=== PATIENT | male | born 1965 | race Two or more races ===

== ENCOUNTER 2017-10-22 10:35 | Emergency (ER) | payer OTHER ==
[~2017-10-22] VITALS: Ht 157.5 cm; Wt 98.9 kg
[2017-10-22 10:59] VITALS: BP 142/82
[2017-10-22] MEDS ORDERED: Morphine Sulfate 4mg/ml Inj IVP ONE (11:15)
[2017-10-22 11:48] LABS: ANION GAP 8 mmol/L (5-15); CALCIUM 8.7 MG/DL (8.5-10.1); CARBON DIOXIDE 28 MMOL/L (21-32); CHLORIDE 103 MMOL/L (98-107); CREATININE 0.8 MG/DL (0.55-1.30); GLOMERULAR FILTRATION RATE > 60 mL/min (>60); POTASSIUM 4.3 MMOL/L (3.5-5.1); SODIUM 139 MMOL/L (136-145)
[2017-10-22 11:53] LABS: ALANINE AMINOTRANSFERASE 100 U/L (12-78); ALBUMIN/GLOBULIN RATIO 0.9 (1.0-2.7); APPEARANCE,URINE CLEAR; ASPARTATE AMINO TRANSFERASE 75 U/L (15-37); KETONES,URINE NEGATIVE (NEGATIVE); LEUKOCYTE ESTERASE ,URINE 1+ (NEGATIVE); LIPASE 201 U/L (73-393); NITRITE,URINE NEGATIVE (NEGATIVE); PH,URINE 6.5 (4.5-8.0); PROTEIN,URINE 1+ (NEGATIVE); TOTAL PROTEIN 7.6 G/DL (6.4-8.2); UROBILINOGEN,URINE 1 MG/DL (0.0-1.0)
[2017-10-22 11:55] LABS: BASOPHILS % (AUTO) 1.5 % (0.0-2.0); EOSINOPHILS % (AUTO) 2.2 % (0.0-3.0); LYMPHOCYTES % (AUTO) 40.9 % (20.0-45.0); MEAN CORPUSCULAR HEMOGLOBIN 31.1 PG (27.0-31.0); MEAN CORPUSCULAR HGB CONC 34.5 G/DL (32.0-36.0); MEAN CORPUSCULAR VOLUME 90 FL (80-99); MEAN PLATELET VOLUME 6.7 FL (6.5-10.1); MONOCYTES % (AUTO) 9.6 % (1.0-10.0); PLATELET COUNT 177 K/UL (150-450); RED BLOOD COUNT 5.13 M/UL (4.70-6.10); RED CELL DISTRIBUTION WIDTH 11.6 % (11.6-14.8); WHITE BLOOD COUNT 5.3 K/UL (4.8-10.8)
[2017-10-22 12:05] LABS: BACTERIA,URINE OCCASIONAL /HPF; RBC,URINE 0-2 /HPF (0 - 0); SQUAMOUS EPITHELIAL CELL,UR OCCASIONAL /LPF (NONE/OCC); WBC,URINE 0-2 /HPF (0 - 0)
[2017-10-22] MEDS ORDERED: PEPCID40 MG PO (13:16)
[2017-10-22 13:44] VITALS: BP 118/72
--- NOTE | 2017-10-23 07:09 | Emergency Room Report ---
History of Present Illness General Chief Complaint: Abdominal Pain Source: Patient Present Illness HPI 51-year-old male walks in with one week of left-sided abdominal pain radiating to back Associated with bloating, and dyspepsia Nice nausea, vomiting, diarrhea, sick contacts, foreign travel. Primary care doctor said he might have colitis, prescribed ibuprofen however this medication did not help much He denies associated fever or chills, hematuria, history of flank stones, prior abdominal surgery Denies any trauma to left side Has circular 2 cm ecchymosis on left side, but states that's from his trying "cupping" on him to help his pain Denies any other medical problems Denies any other medications Allergies: Coded Allergies: No Known Allergies (Unverified , 10/22/17) Patient History Past Medical History: none Past Surgical History: none Pertinent Family History: none Social History: Denies: smoking, alcohol use, drug use Immunizations: UTD Reviewed Nursing Documentation: PMH: Agreed, PSxH: Agreed Nursing Documentation-PMH Past Medical History: No Stated History Review of Systems All Other Systems: negative except mentioned in HPI Physical Exam Vital Signs Date Time Temp Pulse Resp B/P (MAP) Pulse Ox O2 Delivery O2 Flow Rate FiO2 10/22/17 10:42 97.9 69 14 130/81 98 Room Air Sp02 EP Interpretation: reviewed, normal General Appearance: normal inspection, well appearing, no apparent distress, alert, GCS 15, non-toxic Head: normocephalic, atraumatic Eyes: bilateral eye PERRL, bilateral eye EOMI ENT: normal ENT inspection, hearing grossly normal, normal voice Neck: normal inspection, full range of motion, supple, no bony tend Respiratory: normal inspection, lungs clear, normal breath sounds, no respiratory distress, no retraction, no wheezing Cardiovascular #1: regular rate, rhythm, no edema Gastrointestinal: normal inspection, normal bowel sounds, non tender, soft, no guarding, no hernia Genitourinary: no CVA tenderness Musculoskeletal: normal inspection, back normal, normal range of motion, Esteban' s Sign negative Neurologic: normal inspection, alert, oriented x3, responsive, club licensee III-XII nml as tested, speech normal Psychiatric: normal inspection, judgement/insight normal, mood/affect normal Skin: normal inspection, normal color, no rash Lymphatic: normal inspection Medical Decision Making Diagnostic Impression: Primary Impression: Abdominal pain Qualified Codes: R10.12 - Left upper quadrant pain ER Course 51-year-old male with left-sided abdominal pain radiating to left flank Vital signs stable, afebrile Focal abdominal tenderness on serial exam or left flank tenderness Labs: No leukocytosis, H&H stable, no metabolic abnormalities, troponin within normal limits, no sign of infection on urinalysis CT abdomen also does not demonstrate acute abnormality to explain patient's symptoms Given dyspepsia, bloating likely acid reflux\\GERD or gastritis Recommended stop ibuprofen, start prescription Pepcid Followup with primary care doctor for possible referral to gastroenterology for endoscopy ER course: Patient has remained stable during ED stay. Patient is to be discharged to home. Prescriptions given are pepcid Patient is instructed to follow up with their primary care doctor within 5 days. Strict return precautions discussed with patient such as fever, chills, worsening/severe pain, nausea, vomiting, which may indicate severe illness. Patient verbalizes understanding and agrees with plan. Please note that this Emergency Department Report was dictated using [employer] component engineer technology software, occasionally this can lead to erroneous entry secondary to interpretation by the dictation equipment Last Vital Signs Date Time Temp Pulse Resp B/P (MAP) Pulse Ox O2 Delivery O2 Flow Rate FiO2 10/22/17 13:44 58 16 118/72 98 Room Air 10/22/17 12:05 98.2 Status: improved Disposition: HOME, SELF-CARE Condition: Improved Scripts Famotidine (PEPCID) 40 Mg Tablet 40 MG PO DAILY for 7 Days, #14 TAB 0 Refills Prov: SAPNA CASTRO M.D. 10/22/17 Referrals: NON PHYSICIAN (PCP) Patient Instructions: Gastritis, Adult, Abdominal Pain, Adult Additional Instructions: - Take pepcid 40mg each morning for 1-2 weeks or until pain/swelling resolve - Follow up with your doctor - you may need endoscopy SAPNA CASTRO M.D. Oct 23, 2017 07:09
--- NOTE | 2017-10-23 09:46 | Diagnostic Imaging Report ---
Indication: Abdominal pain Technique: Continuous helical transaxial imaging of the abdomen and pelvis was obtained from the lung bases to the pubic symphysis during intravenous contrast administration. Coronal 2-D reformats were also obtained. Study obtained in a Siemens sensation [address] Automatic Exposure Control was utilized. Total Dose length Product (DLP): [address] Dose Index Volume (CTDIvol): 0.15, 19.07 mGy Comparison: None Findings: Mild subsegmental basilar atelectasis demonstrated. The liver is hypodense. Gallbladder is distended. There is a questionable tiny stone in the gallbladder. The pancreas, adrenal glands and spleen appear unremarkable. Small bilateral renal cysts are present. Normal appendix noted. No free fluid or free air demonstrated. The bladder is nondistended. There is a small non-gravity dependent punctate calcification in the anterior part of the bladder. This could be a wall adherent stone or neural calcium. Tiny umbilical hernia containing fat noted. Impression: Fatty liver Tiny calcification in the bladder dome, nonspecific possibly wall adherent stone. Tiny umbilical hernia containing fat. Mild basilar atelectasis. Questionable tiny gallstone. The CT scanner at [facility] is accredited by the [employer] and the scans are performed using dose optimization techniques as appropriate to a performed exam including Automatic Exposure control.
--- NOTE | 2017-10-24 18:41 | Cardiology Report ---
APPROVED REPORT EKG Measurement Heart [id number] Normal sinus rhythm Normal ECG
== END 2017-10-22 13:47 | disposition home or self-care (01) ==
LOC: EMR 11:16
DX: R10.13 Epigastric pain (principal); R14.0 Abdominal distension (gaseous); M54.89 Other dorsalgia; K76.0 Fatty (change of) liver, not elsewhere classified; K42.9 Umbilical hernia without obstruction or gangrene
CPT/HCPCS: 36415; 74177; 80053; 81003; 83605; 83690; 84484; 85025; 93005; 96374; 99284; J2270; Q9967